=== PATIENT | female | born 1940 | race Caucasian/White ===

== ENCOUNTER → 2017-08-29 09:57 | Outpatient (CLI) | payer MEDICARE, SELFPAY ==
--- NOTE | 2017-08-29 | DI.MRI.S_ITS ---
PROCEDURE: MR HEAD/BRAIN WO CON INDICATIONS: DEMENTIA. MEMORY LOSS, FALLS TECHNIQUE: Non-contrast axial T1 spin echo, axial T2 fast spin echo, sagittal and axial FLAIR, coronal T2 fast spin echo, axial gradient echo, axial diffusion and ADC through the brain. COMPARISON: [facility], MR, [id number] W&WO CONTRAST, 12/07/2011, 10:31. FINDINGS: Image quality: Excellent. CSF spaces: Ventricles appear symmetric in size and shape. Basal cisterns are patent. No extra-axial fluid collections. Brain: No intracranial bleeds or mass effects. There is cerebral volume loss for age. There are periventricular and deep white matter chronic small vessel ischemic changes. Brainstem appears normal. Diffusion-weighted images show no acute ischemic insults. No chronic ischemic insults. Normal intravascular flow voids are present. Skull and face: Calvarial bone marrow is normal in signal. Orbits are normal. Sinuses: Sinuses and mastoids are clear. IMPRESSION: 1. No acute intracranial process. 2. Moderate atrophy and chronic microvascular ischemic changes. Dictated by: Tammy Porter M.D. on 08/29/2017 at 12:28 Approved by: Tammy Porter M.D. on 08/29/2017 at 12:30
== END ==
PROVIDERS: Visit Provider Family Medicine
DX: F03.90 Unspecified dementia, unspecified severity, without behavioral disturbance, psychotic disturbance, mood disturbance, and anxiety (principal); R29.6 Repeated falls
CPT/HCPCS: 70551

== ENCOUNTER → 2023-11-07 12:40 | Outpatient (CLI) | payer MEDICARE, OTHER, SELFPAY ==
--- NOTE | 2023-11-07 12:44 | DI.MRI.S_ITS ---
PROCEDURE: MR LUMBAR SPINE WO CON INDICATIONS: LUMBAR SPINE PAIN TECHNIQUE: Noncontrast sagittal T1 spin echo and T2 fast echo, sagittal STIR, and T2 fast spin echo through the lumbar spine. In cases with scoliosis, additional coronal T2 fast spin echo may be performed. COMPARISON: [facility], CR, XR LUMBAR SPINE WITH OBLIQUES PLUS FLEXION EXTENSION, 11/05/2023, 8:25. FINDINGS: Image quality: Excellent Partially lumbarized S1. A rudimentary disc is seen at S1-2. Moderate dextroscoliosis lumbar spine, centered at L3-4. Grade 1 anterolisthesis T12 on L1, L4 on L5, and L5 on S1. Severe anterior compression deformity of L1, with vertebroplasty changes. Mild retropulsion of posterior L1 vertebral body. No marrow edema of L1, suggestive chronic etiology. Mild fibrovascular end plate change at T11-T12 and L1-2. No suspicious marrow replacing lesion. Conus terminates at the level of T12-L1, and is unremarkable. Right neural foraminal stenosis: Mild at T12-L1. Left neural foraminal stenosis: Moderate at L1-2 Axial images: T10-T11: Mild bilateral facet arthropathy. No stenosis. T11-T12: Mild disc bulge. Mild bilateral facet arthropathy. No central canal or neural foraminal stenosis. T12-L1: Mild retropulsion of posterior L1 vertebral body. Mild bilateral facet arthropathy. Mild central canal stenosis. L1-2: Disc bulge. No central canal stenosis. L2-3: Mild bilateral facet arthropathy. Disc bulge. No central canal stenosis. L3-4: Disc bulge. No central canal stenosis. L4-5: Posterior disc uncovering. Mild bilateral facet arthropathy. Mild central canal stenosis. L5-S1: Moderate bilateral facet arthropathy. Posterior disc uncovering. No central canal stenosis. Visualized sacrum is intact. No abdominal aortic aneurysm. IMPRESSION: 1. Multilevel degenerative changes lumbar spine, most pronounced at L1-2, where there is moderate left neural from stenosis. 2. Chronic severe compression fracture of L1 vertebral body with vertebroplasty changes. Dictated by: Gillian Cobb M.D. on 11/07/2023 at 16:18 Approved by: Gillian Cobb M.D. on 11/07/2023 at 16:29
== END ==
LOC: MRI 12:43
PROVIDERS: PCP Nurse Practitioner; Referring Provider Physical Medicine & Rehabilitation Pain Medicine; Visit Provider Physical Medicine & Rehabilitation Pain Medicine
DX: M47.816 Spondylosis without myelopathy or radiculopathy, lumbar region (principal); M47.817 Spondylosis without myelopathy or radiculopathy, lumbosacral region; M48.061 Spinal stenosis, lumbar region without neurogenic claudication; M48.56XA Collapsed vertebra, not elsewhere classified, lumbar region, initial encounter for fracture; M54.50 Low back pain, unspecified
CPT/HCPCS: 72148

== ENCOUNTER → 2023-12-31 14:39 | Outpatient (CLI) | payer MEDICARE, OTHER, SELFPAY ==
--- NOTE | 2023-12-31 14:42 | DI.RAD.S_ITS ---
PROCEDURE: XR CHEST 2V INDICATIONS: COUGH TECHNIQUE: 2 views of the chest were acquired. COMPARISON: None. FINDINGS: Heart, mediastinum and pulmonary vascular: Heart is normal in size and configuration. Mediastinum is unremarkable. Pulmonary vascular is normal. Lungs: The lung volumes are elevated with wall thickening of the bronchi and possible biapical bulla suggesting COPD. Minimal scattered fibrosis present mid lower lungs. No edwin infiltrates Pleural spaces: Normal-no effusions or pneumothorax. IMPRESSION: Probable COPD. No acute disease Dictated by: Shemar France M.D. on 01/01/2024 at 11:54 Approved by: Shemar France M.D. on 01/01/2024 at 11:55
[2023-12-31 16:49] LABS: Influenza A - CEPHEID Flu A NEGATIVE (NEGATIVE); Influenza B - CEPHEID Flu B NEGATIVE (NEGATIVE); Respiratory Syncytial Virus Negative (Negative)
[2023-12-31 16:59] LABS: COVID-19 CEPHEID 4-PLEX PCR Negative (Negative)
== END ==
PROVIDERS: PCP Registered Nurse; Referring Provider Internal Medicine; Visit Provider Internal Medicine
DX: R05.1 Acute cough (principal)
CPT/HCPCS: 0241U; 71046